=== PATIENT | female | born 1945 | race Caucasian/White ===

== ENCOUNTER → 2017-10-16 | Outpatient (CLI) | payer OTHER ==
[~2017-10-16] MED LIST: ATIVAN1 MG PO; AUGMENTIN 875875 M1 PO; AVELOX; CALCIUM 1,0001 EACH PO; CELEXA40 MG PO; CLONAZEPAM 1 MG1 M1 PO; CRANBERRY400 MG PO; DESYREL PO; FISH OIL 1,0001 EAC5 PO; FLAX SEED OIL1000 MG PO; GLUCOPHAGE500 MG PO; HYDROCODONE-AP1 EAC6 PO; HYDROXYZINE HCL25 M1 PO; KLONOPIN0.5 MG PO; LIBRIUM10 MG PO; MACROBID 100 M100 M1 PO; MEDROLDOSEPACK PO; MIRTAZAPINE; MULTIVITAMINS; NEURONTIN 300300 M1 PO; NEURONTIN600 MG PO; REMERON15 MG; REQUIP 0.25 M0.25 M1 PO; RESTORIL15 MG PO; UNICOMPLEX M TA1 TA1 PO; VITAMIN B-1100 M1 PO; VITAMIN D1000 UNI1 PO
--- NOTE | 2017-11-19 10:00 | PAINCON ---
[address] [address] PAIN MANAGEMENT CONSULTATION Name: JIMENEZ CEJA Room: [facility] Ronnell.#: [id number] Admission: 10/16/17 Attend Phys: Florian Lee MD Discharge: Date of : 47 Report #: [id number] THIS REPORT FOR: //name// CC: Castro Lee DATE OF SERVICE: 10/16/2017 PRIMARY CARE PHYSICIAN: Castro Montero MD CHIEF COMPLAINT: Back and leg pain. HISTORY OF PRESENT ILLNESS: The patient is a 72-year-old female who has been referred to the pain clinic because of pain and discomfort. The patient states that she is experiencing pain in her low back with pain down in the area of sacrum. She has been experiencing some weakness in her legs. Has had some sharp pain in the sacral region. Feel that her legs have given out on 3 occasions. The patient did fall. She notes that prior to this, her whole body starts to feel shaky before the fall occurs. Denies any numbness at that time. Denies any history of seizures. Notes pain can be exacerbated in her low back area when she is bending. She has noted problems when squatting down as well. She has tried heat. Notes that, that has provided some benefit. Describes her discomfort as intermittent, aching and sharp. She has been having problems similar to this since 2007 pain. The patient states that she has been ruled out for MS and Parkinson's disease. States that she has had an MRI of her head and neck as well as lumbar spine. She has undergone EMGs. She has a history of dizziness. She sometimes feels like her balance is off when walking. She has felt lightheaded in the past though she would pass out. At those times, she has noticed that her legs felt weak and heavy. Her perception is that they may give way. She has had a lifelong history of head and hand tremors. She has noticed that her legs sometimes feel shaky. She has tried Klonopin for anxiety and tremors. She does suffer from restless legs syndrome, which caused some difficulty in sleeping. MEDICATIONS: Celexa 40 mg daily dose of 20 mg, clonazepam 0.5 mg b.i.d., Neurontin 300 mg at bedtime, Glucophage 500 mg. PAST MEDICAL HISTORY: 1. Diabetes. 2. Emotional problems. 3. Fine tremors. 4. Restless leg syndrome. 5. Alcoholism, stopped drinking in 12/2010, still drinks on occasion. 6. [place] [address] PAIN MANAGEMENT CONSULTATION Name: JIMENEZ CEJA [id number] Admission: 10/16/17 Attend Phys: Florian Lee MD Discharge: Date of : 47 Report #: [id number] PAST SURGICAL HISTORY: Tubal ligation in 1984, breast biopsy, benign in 2005, miscarriage x 1, and marsupialization of Bartholin gland. ALLERGIES/REACTIONS: PREDNISONE, 10/02/2016. 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 REVIEW OF SYSTEMS: Questionnaire generally good health, recent weight change, fatigue, weakness, wears glasses, chronic sinus problems, shortness of breath with walking, but awakens at night to urinate, diabetes, weakness of muscles and joints, muscle pain, back pain, difficulty walking, breast lump, lightheadedness/dizziness, numbness and tingling sensation, tremors, nervousness, depression, and insomnia. LABORATORY DATA: MRI of the lumbar spine without contrast dated 09/18/2017. 1. L3-L4 - there is a diffuse disk bulge. There is mild to moderate facet and ligamentum flavum hypertrophy. There is fluid in the facet joints. There is prominent epidural fat pad. There is ighi-[id number]-mgiipebr right and mild left foraminal narrowing. Thecal sac 0.8 cm AP decreased. 2. L4-L5 - mild disk bulge, slightly eccentric to the left. There is moderate facet hypertrophy and there is ligamentum flavum hypertrophy. There is narrowing of the left lateral recess with minimal contact with the L5 nerve root. Correlate with L5 radicular symptoms. Foraminal narrowing is mild to moderate on the right and is moderate on the left. Thecal sac is 0.9 cm AP. 3. L5-S1 - disk osteophyte complex is noted with a right paracentral broad-based protruding component. There is minimal facet hypertrophy. Thecal sac 1.5 cm AP. PAIN CLINIC ASSESSMENT: 1. History of osteoarthritis or rheumatoid arthritis. The patient has not been treated for rheumatoid arthritis or osteoarthritis. 2. Height 5 feet 5 inches, weight 130 pounds, BMI is 21.7. 3. Vital Signs: Blood pressure 118/66, heart rate 76, respiratory rate 16, room air saturation 98%, and pain score 3-4/10. 4. Fall. The patient states that she has fallen on 3 occasions. Feels her legs have given way. 5. Blood thinner. The patient is not on a blood thinning medication. 6. Hypertension. The patient is not being treated for hypertension. 7. Opioid therapy greater than 6 weeks. The patient is not on an opioid regimen. 8. Risk assessment tool. 9. Functional assessment tool, 30/70. 10. Recreational drug use. The patient denies use of recreational drugs. 11. Tobacco: The patient smokes less than 1 pack of cigarettes per day, has smoked for 30 years. 12. Alcohol: The patient denies use of alcoholic beverages [place] [address] PAIN MANAGEMENT CONSULTATION Name: JIMENEZ CEJA Room: [facility]#: [id number] Admission: 10/16/17 Attend Phys: Florian Lee MD Discharge: Date of : 47 Report #: [id number] Reported alcoholism, stopped drinking in 12/2010. PHYSICAL EXAMINATION: GENERAL: The patient is a well-developed, well-nourished, white female. Appears her stated age. She is alert and oriented x 3. Her affect is appropriate. HEENT: Normocephalic, atraumatic. Extraocular eye muscles intact. Sclerae nonicteric. Mucous membranes are moist. NECK: With good range of motion. HEART: Regular rate. S1, S2. LUNGS: Clear to auscultation without rhonchi or rales. ABDOMEN: Nontender. EXTREMITIES: The patient without significant scoliosis, kyphosis or lordosis. Upper extremity muscle strength judged to be 5/5 for the major muscle groups in the upper extremity. The patient has a slight tremor in her hands and slight tremor in her head with head movement. Lower extremity muscle strength judged to be 5/5 for the major muscle groups. Deep tendon reflexes are trace at the knees bilaterally. Upper extremity muscle strength judged to be 5/5 for the major muscle groups. Deep tendon reflexes +1. Velasquez's sign negative. Anterior and posterior spring tests are negative. IMPRESSION: 1. Leg weakness, occasional sharp pains in the sacral area. 2. Diabetes. 3. Emotional problems. 4. Fine tremors. 5. Restless leg syndrome. 6. Alcoholism, stopped drinking in 12/2010, still drinks on occasion. 7. Insomnia RECOMMENDATIONS: We discussed treatment options with the patient. At this juncture, we will consider a conservative approach. The patient will try Medrol Dosepak. We will consider the possibility of an epidural steroid injection. She is having some pain and discomfort and numbness in the lower portion of her legs in the posterior L5-S1 distribution. Has some pain and discomfort in the area of the right sciatic outflow tract. A Medrol Dosepak has been written. The patient will take this medication and note its efficacy. Possibility of injection as she returns to the pain clinic remains an option. We would like to thank you for letting us participate in her care. We hope she continues to improve. <ELECTRONICALLY SIGNED> By: Florian Lee MD 11/19/17 [id number]. Jhony Lee MD /DEEDEE
== END ==
LOC: M.PC 04:48
DX: M54.5 Low back pain (principal); M79.604 Pain in right leg; M79.605 Pain in left leg; M53.3 Sacrococcygeal disorders, not elsewhere classified; E11.9 Type 2 diabetes mellitus without complications; G47.00 Insomnia, unspecified; G25.81 Restless legs syndrome; F98.9 Unspecified behavioral and emotional disorders with onset usually occurring in childhood and adolescence; F10.20 Alcohol dependence, uncomplicated

== ENCOUNTER → 2018-02-13 | Outpatient (CLI) | payer OTHER | LOC: M.RAD 14:43 | DX: G25.81 Restless legs syndrome (principal); R26.89 Other abnormalities of gait and mobility ==

== ENCOUNTER 2018-05-17 11:31 | Emergency (ER) | payer OTHER ==
[~2018-05-17] VITALS: Ht 165.1 cm; Wt 60.8 kg
[2018-05-17] MEDS ORDERED: FLEXERIL PO (11:40)
[2018-05-17] MEDS ORDERED: REQUIP0.5 MG PO (11:40)
[2018-05-17 11:56] LABS: ABSOLUTE EOSINOPHILS 0.1 thou/uL (0.0-0.7); ABSOLUTE LYMPHOCYTES 0.6 thou/uL (0.8-5.3); ABSOLUTE MONOCYTES 0.4 thou/uL (0.0-1.2); ABSOLUTE NEUTROPHILS 4.7 thou/uL (1.6-8.1); BASOPHILS 0.5 %; EOSINOPHILS 1.6 %; HEMATOCRIT 33.7 % (37.0-47.0); HEMOGLOBIN 11.2 gm/dL (12.0-15.0); LYMPHOCYTES 10.9 %; MCH 29.6 pg (26.0-34.0); MCHC 33.2 g/dL (28.0-37.0); MCV 89.2 fL (80.0-100.0); MONOCYTES 7.3 %; MPV 7.4 fl. (7.2-11.1); NUCLEATED RBCS 0 /100WBC; PLATELET COUNT* 326 thou/uL (150-400); POLYS 79.7 %; RBC 3.77 mil/uL (4.20-5.00); RDW-CV 16.6 % (10.5-14.5); WBC 5.9 thou/uL (4.0-11.0)
[2018-05-17 12:07] LABS: APTT 26.6 Seconds (25.0-31.3); PROTIME 9.9 Seconds (9.20-11.50)
[2018-05-17 12:18] LABS: ANION GAP 8 mmol/L (7-16); BUN 12 mg/dL (7-18); CALCIUM 9.1 mg/dL (8.5-10.1); CHLORIDE 100 mmol/L (98-107); CO2 30 mmol/L (21-32); CREATININE 0.9 mg/dL (0.6-1.3); GLUCOSE 115 mg/dL (70-99); POTASSIUM 3.1 mmol/L (3.5-5.1); SODIUM 138 mmol/L (136-145); TROPONIN-I LEVEL <0.06 ng/mL (<0.06)
[2018-05-17 12:21] LABS: ALBUMIN 3.3 g/dL (3.4-5.0); ALKALINE PHOSPHATASE 93 U/L (46-116); LIPASE 96 U/L (73-393); MAGNESIUM 1.5 mg/dL (1.8-2.4); NT-PRO BRAIN NAT PEPTIDE 211 pg/mL (<300); SGOT 12 U/L (15-37); SGPT 13 U/L (30-65); TOTAL BILIRUBIN 0.3 mg/dL (<0.1-1.0); TOTAL PROTEIN 7.3 g/dL (6.4-8.2)
[2018-05-17 13:03] VITALS: BP 122/87
--- NOTE | 2018-05-17 15:17 | EKG ---
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 : 1945 Requested By: Wellington Jonas Order Number: [id number] MD: Alex Staples Measurements Intervals [place] Rate: 71 P: 54 VT: 176 QRS: 17 QRSD: 94 T: 51 QT: 380 QTc: 413 Interpretive Statements Sinus rhythm Anterior infarct, old possible Baseline wander in lead(s) V6 Compared to ECG 10/02/2016 12:04:42 Myocardial infarct finding now present Atrial premature complex(es) no longer present Electronically Signed On 05-17-2018 15:17:22 CDT by Alex Staples [email or web address] <ELECTRONICALLY SIGNED> By: Alex Staples MD, [facility] 05/17/18 1517 1136 [id number] Alex Staples MD, [facility] /EPI
== END 2018-05-17 13:04 | disposition home or self-care (01) ==
LOC: M.ERS 11:31
PROVIDERS: Family Medicine
DX: R42 Dizziness and giddiness (principal); R53.1 Weakness; G25.81 Restless legs syndrome; F32.9 Major depressive disorder, single episode, unspecified; F41.9 Anxiety disorder, unspecified; F17.210 Nicotine dependence, cigarettes, uncomplicated; Z98.890 Other specified postprocedural states; Z88.8 Allergy status to other drugs, medicaments and biological substances

== ENCOUNTER → 2018-06-12 | Outpatient (CLI) | payer OTHER ==
[~2018-06-12] MED LIST changes: +FLEXERIL PO; +REQUIP0.5 MG PO
--- NOTE | 2018-06-12 16:43 | EXE ---
[place] [address] STRESS ECHOCARDIOGRAM Name: BRENNAJIMENEZ RAE Room: [facility]#: [id number] Admission: 06/12/18 Attend Phys: Leandro Mak, Discharge: Date of : 47 Date of Service: 06/12/18 1642 Report #: [id number] THIS REPORT FOR: //name// APPROVED REPORT Study performed: 06/12/2018 15:30:50 Exam: Dobutamine Stress Echo Indication: Chest pain , Dyspnea , Dizziness Patient Location: Out-Patient Stress Nurse: Arline Coates RN Supervising Physician: Alex Staples MD Ht: 5 ft 5 in HR: 59 bpm BP: 155/71 mmHg Medical History Cardiac Risk Factors: FHX of CAD, DM, Tobacco History (Current/Recent) Procedure The patient underwent a Pharmacological Stress Test using Dobutamine. Blood pressure, heart rate, and EKG were monitored. An Echocardiogram was performed by civil design technician in four stages in quad fashion. At peak stress, four selected images were obtained and placed side by side with resting images for comparison. Stress Test Details Stress Test: Pharmacological Stress Test using Dobutamine. Reason for pharmacologic stress test: physical limitation. HR Resting HR: 59 bpm Max Heart Rate (APMHR): 148 bpm Max HR Achieved: 138 bpm Target HR (85% APMHR): 125 bpm % of APMHR: 93 Recovery HR: 80 bpm HR response to stress: Normal HR response to stress BP Resting BP: 155/71 mmHg Max BP: 190/65 mmHg Recovery BP: 150/74 mmHg BP response to stress: Normal blood pressure response [place] [address] STRESS ECHOCARDIOGRAM Name: JIMENEZ CEJA Room: [facility]#: [id number] Admission: 06/12/18 Attend Phys: Leandro Corado, Discharge: Date of : 47 Date of Service: 06/12/18 1642 Report #: [id number] Resting ECG: nsr Stress ECG: Sinus Rhythm, nonspecific ST-T abnormalities ST Change: , Upsloping ST depression Maximum ST Deviation: 0.5 mm Arrhythmia: none Recovery ECG: nsr Recovery ST Change: none Recovery Arrhythmia: none Clinical Reason for Termination: Completed protocol Stress ECG Conclusion mild ecg changes Pre-Stress Echo The resting Echocardiogram showed normal left ventricular contractility with an estimated Ejection Fraction of about 60-65%. Mild Mitral regurg Post-Stress Echo LV chamber size decreases, LV ejection fraction increases, no new wall motion abnormalities are seen. Conclusion Clinical Response: Non-ischemic Exercise Capacity: n/a Stress ECG Response: Indeterminant Stress Echo Images: Non-ischemic Negative dobutamine stress echo for ischemia or infarct. Other Information Study Quality: Good <Conclusion> Negative dobutamine stress echo for ischemia or infarct. <ELECTRONICALLY SIGNED> By: Shubham Foster MD, FAC 06/12/181641 41 41 Shubham Foster MD, FACC /INF
== END ==
LOC: M.CRD 14:41
DX: R00.0 Tachycardia, unspecified (principal); R06.02 Shortness of breath; R42 Dizziness and giddiness; R07.9 Chest pain, unspecified; F17.210 Nicotine dependence, cigarettes, uncomplicated; F41.9 Anxiety disorder, unspecified; F32.9 Major depressive disorder, single episode, unspecified

== ENCOUNTER 2018-06-20 17:57 | Emergency (ER) | payer OTHER ==
[~2018-06-20] VITALS: Ht 165.1 cm; Wt 60.8 kg
[2018-06-20] MEDS ORDERED: UNICOMPLEX M TA1 TA1 PO (18:10)
[2018-06-20] MEDS ORDERED: VITAMIN D5000 UNIT PO (18:10)
[2018-06-20 18:54] LABS: URINE BILIRUBIN NEGATIVE (Negative); URINE BLOOD NEGATIVE (Negative); URINE CLARITY CLEAR; URINE COLOR YELLOW; URINE GLUCOSE-RANDOM NEGATIVE (Negative); URINE KETONES NEGATIVE (Negative); URINE LEUKOCYTES-REFLEX TRACE (Negative); URINE PROTEIN NEGATIVE (Negative); URINE UROBILINOGEN 0.2 E.U./dl (0.2-1.0)
[2018-06-20 18:57] LABS: AMP/METHAMP Negative (Negative); BARBITURATES Negative (Negative); BENZODIAZEPINES Negative (Negative); COCAINE Negative (Negative); METHADONE Negative (Negative); OPIATES Negative (Negative); PCP Negative (Negative); THC Negative (Negative)
[2018-06-20 19:03] LABS: ABSOLUTE BASOPHILS 0.1 thou/uL (0.0-0.2); ABSOLUTE EOSINOPHILS 0.1 thou/uL (0.0-0.7); ABSOLUTE LYMPHOCYTES 1.2 thou/uL (0.8-5.3); ABSOLUTE MONOCYTES 0.3 thou/uL (0.0-1.2); ABSOLUTE NEUTROPHILS 3.5 thou/uL (1.6-8.1); EOSINOPHILS 2.4 %; LYMPHOCYTES 23.1 %; MCH 29.7 pg (26.0-34.0); MCHC 33.4 g/dL (28.0-37.0); MCV 88.9 fL (80.0-100.0); MONOCYTES 5.7 %; MPV 7.7 fl. (7.2-11.1); NUCLEATED RBCS 0 /100WBC; PLATELET COUNT* 468 thou/uL (150-400); POLYS 67.8 %; RBC 4.05 mil/uL (4.20-5.00); RDW-CV 17.5 % (10.5-14.5); WBC 5.1 thou/uL (4.0-11.0)
[2018-06-20 19:06] LABS: CASTS None Seen /LPF (None Seen); CRYSTALS None Seen /LPF (None Seen); SQUAMOUS 0-3 Few /LPF (0-3); URINE NITRITE-REFLEX POSITIVE (Negative); URINE RBC 0-2 Rare /HPF (0-2); URINE WBC-REFLEX 6-15 Few /HPF (0-5)
[2018-06-20 19:13] LABS: ANION GAP 13 mmol/L (7-16); BUN 12 mg/dL (7-18); CALCIUM 8.4 mg/dL (8.5-10.1); CHLORIDE 105 mmol/L (98-107); CO2 27 mmol/L (21-32); CREATININE 0.9 mg/dL (0.6-1.3); GLUCOSE 110 mg/dL (70-99); POTASSIUM 3.9 mmol/L (3.5-5.1); SODIUM 145 mmol/L (136-145)
[2018-06-20 19:14] LABS: APTT 26.6 Seconds (25.0-31.3)
[2018-06-20 19:26] LABS: ALBUMIN 3.4 g/dL (3.4-5.0); ALKALINE PHOSPHATASE 80 U/L (46-116); CK-MB MASS 0.8 ng/mL (<0.5-3.6); NT-PRO BRAIN NAT PEPTIDE 192 pg/mL (<300); SGOT 16 U/L (15-37); SGPT 18 U/L (30-65); TOTAL BILIRUBIN 0.2 mg/dL (<0.1-1.0); TOTAL PROTEIN 7.3 g/dL (6.4-8.2); TROPONIN-I LEVEL <0.06 ng/mL (<0.06)
[2018-06-20] MEDS ORDERED: KEFLEX500 M1 PO (20:13)
[2018-06-20 21:28] VITALS: BP 113/80
--- NOTE | 2018-06-21 10:48 | EKG ---
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
== END 2018-06-20 21:33 | disposition home or self-care (01) ==
LOC: M.ERS 17:57
PROVIDERS: Family Medicine
DX: N39.0 Urinary tract infection, site not specified (principal); F10.129 Alcohol abuse with intoxication, unspecified; R41.82 Altered mental status, unspecified